=== PATIENT | male | born 1955 | race African-American/Black ===

== ENCOUNTER 2018-10-01 08:48 | Inpatient (IN) ==
[~2018-10-01 08:48] MED LIST: CEFUROXIME INJ 1,500 MG in SYRINGE 1 EACH IV ONE; DEXTROSE 50% 25 GM/50 ML SYRINGE IV PRN; GLUCAGON 1 MG VIAL IM PRN
[2018-10-01] MEDS ORDERED: ceFAZolin 1,000 MG in SYRINGE 1 EACH IV ONE (09:02)
[2018-10-01 09:23] LABS: Basophils % 0.3 % (0.0-0.8); Eosinophils % 0.6 % (0.00-10.9); Hematocrit 44.4 VOL% (42.0-52.0); Hemoglobin 14.3 GM/DL (14.0-18.0); Immature Granulocytes % 0.4 %; Immature Granulocytes Absolute 0.03 #; Lymphocytes # 1.4 10*3/uL (1.4-4.0); Lymphocytes % 19.9 % (21.2-54.2); Mean Corpuscular HGB Conc 32.2 GM/DL (32-36); Mean Corpuscular Hemoglobin 27 PG (27-34); Mean Corpuscular Volume 85.2 FL (87-102); Mean Platelet Volume 10.2 FL (9.6-12.0); Monocytes # 0.9 10*3/uL (0.11-0.8); Monocytes % 13.5 % (1.7-12.7); Neutrophils # 4.5 10*3/uL (1.4-7.4); Neutrophils % 65.3 % (38.7-73.9); Platelet Count 263 T/CUMM (130-400); Red Blood Count 5.21 MC/CUMM (3.8-5.5); Red Cell Distribution Width 12.6 % (9.3-17.3); White Blood Count 6.8 T/CUMM (4-12)
[2018-10-01] MEDS ORDERED: DEXTROSE 50% 25 GM/50 ML SYRINGE IV PRN (09:34)
[2018-10-01] MEDS ORDERED: GLUCAGON 1 MG VIAL IM PRN ×2 (09:34→20:07)
[2018-10-01 09:59] LABS: Bilirubin,Total 0.6 MG/DL (0.2-1.0); Calcium 9.4 MG/DL (8.5-10.1); Osmolality,Calculated 277.8 MOS/KG (273-304); Potassium 3.5 MMOL/L (3.5-5.1); Total Protein 7.2 G/DL (6.4-8.3)
[2018-10-01] MEDS ORDERED: HEPARIN DRIP 25,000 UNITS/500 ML PREMIX IV SCH (10:00)
[2018-10-01] MEDS: CLORAZEPATE 3.75 MG TABLET PO SCH ×3 (10:19→20:56)
[2018-10-01] MEDS: CHLORHEXIDINE 0.12% ORAL RINSE 60 ML BOTTLE SWISH/SPIT SCH ×3 (10:19→20:56)
[2018-10-01] MEDS: ASPIRIN CHEW 81 MG TABLET PO SCH (10:19)
[2018-10-01] MEDS: PANTOPRAZOLE 40 MG TABLET PO SCH (10:19)
[2018-10-01] MEDS: ATORVASTATIN 80 MG TABLET PO SCH (10:19)
[2018-10-01] MEDS: METOPROLOL TARTRATE 25 MG TABLET PO SCH ×3 (10:19→20:56)
[2018-10-01 11:49] LABS: Pt O2 Delivery Device Room Air
[2018-10-01 11:51] LABS: ABG Base Excess 1.6 MMOL/L (-2.5-2.5); ABG HCO3 25.7 MMOL/L (20-26); ABG Oxygen Saturation 95.1 % (95-100); ABG PCO2 37.2 MM HG (35-48); ABG PH 7.443 (7.35-7.45); ABG PO2 73.2 MM HG (80-95); ABG TCO2 21.8 MMOL/L (23-27)
[2018-10-01] MEDS: SODIUM CHLORIDE 0.9% 1,000 ML IV SCH (13:54)
[2018-10-01] MEDS: CHLORHEXIDINE 4% SOLN 118 ML BOTTLE TOP SCH ×2 (14:04→20:30)
[2018-10-01] MEDS ORDERED: NITROGLYCERIN SL 0.4 MG TABLET SL ONE (15:19)
[2018-10-01] MEDS ORDERED: CLORAZEPATE 3.75 MG TABLET PO ONE (15:37)
[2018-10-01] MEDS: NITROGLYCERIN 2% OINT 1 INCH/GM PACK TOP SCH ×2 (16:06→17:10)
[2018-10-01] MEDS ORDERED: DEXTROSE 50% 25 GM/50 ML VIAL IV PRN (20:07)
[2018-10-01] MEDS ORDERED: ONDANSETRON 4 MG/2 ML VIAL IV PRN (20:26)
[2018-10-01] MEDS ORDERED: MORPHINE 4 MG/1 ML VIAL IV PRN (20:29)
[2018-10-01] MEDS: INSULIN REGULAR 100 UNIT/ML SUBCUT SCH (20:54)
[2018-10-02] MEDS: NITROGLYCERIN 2% OINT 1 INCH/GM PACK TOP SCH ×3 (00:27→11:44)
[2018-10-02] MEDS ORDERED: PAPAVERINE 60 MG/2 ML VIAL ONE (04:43)
[2018-10-02] MEDS ORDERED: VANCOMYCIN 1,000 MG VIAL ONE (04:43)
[2018-10-02] MEDS: CHLORHEXIDINE 4% SOLN 118 ML BOTTLE TOP SCH ×2 (05:00→08:26)
[2018-10-02] MEDS ORDERED: ceFAZolin 1,000 MG in SYRINGE 1 EACH IV ONE (05:30)
[2018-10-02] MEDS: METOPROLOL TARTRATE 25 MG TABLET PO SCH ×2 (05:38→08:26)
[2018-10-02] MEDS ORDERED: CALCIUM CHLORIDE 1,000 MG/10 ML VIAL IV ONE (05:40)
[2018-10-02] MEDS ORDERED: MIDAZOLAM 10 MG/2 ML VIAL ONE (05:40)
[2018-10-02] MEDS ORDERED: SUFentanil 250 MCG/5 ML AMP ONE (05:40)
[2018-10-02] MEDS ORDERED: MINERAL OIL/PETROLATUM OPH OINT 3.5 GM TUBE ONE (05:41)
[2018-10-02] MEDS ORDERED: NITROGLYCERIN DRIP 50 MG/250 ML BOTTLE IV ONE (05:41)
[2018-10-02] MEDS ORDERED: HEPARIN/NACL 0.9% 2 UNITS/ML 500 ML IV ONE (05:41)
[2018-10-02] MEDS ORDERED: VECURONIUM 10 MG VIAL IV ONE (05:41)
[2018-10-02] MEDS ORDERED: AMINOCAPROIC ACID 5,000 MG/20 ML VIAL ONE (05:41)
[2018-10-02] MEDS ORDERED: LORazepam 1 MG TABLET PO ONE (06:00)
[2018-10-02] MEDS ORDERED: PHENYLEPHRINE DRIP 40 MG/250 ML PREMIX IV ONE (07:51)
[2018-10-02] MEDS ORDERED: NITROPRUSSIDE 50 MG/2 ML VIAL ONE (07:51)
[2018-10-02] MEDS ORDERED: POTASSIUM CHLORIDE RIDER 100 ML IV ONE (07:52)
[2018-10-02] MEDS ORDERED: CALCIUM CHLORIDE 1,000 MG/10 ML SYRINGE IV ONE (07:52)
[2018-10-02] MEDS ORDERED: SODIUM BICARBONATE 50 MEQ/50 ML VIAL IV ONE ×2 (07:52→11:34)
[2018-10-02] MEDS ORDERED: ATROPINE 1 MG/10 ML SYRINGE ONE (07:57)
[2018-10-02 07:58] LABS: ABG Base Excess -1.2 MMOL/L (-2.5-2.5); ABG HCO3 22.8 MMOL/L (20-26); ABG Oxygen Saturation 99.3 % (95-100); ABG PCO2 36.1 MM HG (35-48); ABG PH 7.418 (7.35-7.45); ABG PO2 292.3 MM HG (80-95); ABG TCO2 23.9 MMOL/L (23-27); Glucose Heart Surgery 200 MG/DL (74-106); Hemoglobin Heart Surgery 13.8 G/DL (14.0-18.0); Ionized Calcium Arterial 1.21 MMOL/L (1.21-1.46); PCO2 Patient Temp Arterial 36.1 MMHG; PH Patient Temp Arterial 7.418; PO2 Patient Temp Arterial 292.3 MM HG; Patient Temperature 37 CELCIUS; Potassium Heart/CVR 3.6 MMOL/L (3.5-5.1); Sodium Heart/CVR 134 MMOL/L (135-145)
[2018-10-02] MEDS ORDERED: HEPARIN 1,000 UNIT/1 ML VIAL ONE (08:12)
[2018-10-02] MEDS: INSULIN REGULAR 100 UNIT/ML SUBCUT SCH ×2 (08:25→10:42)
[2018-10-02] MEDS: ASPIRIN CHEW 81 MG TABLET PO SCH (08:25)
[2018-10-02] MEDS: SODIUM CHLORIDE 0.9% 1,000 ML IV SCH ×2 (08:25→08:30)
[2018-10-02] MEDS: ATORVASTATIN 80 MG TABLET PO SCH (08:26)
[2018-10-02] MEDS: CLORAZEPATE 3.75 MG TABLET PO SCH (08:26)
[2018-10-02] MEDS: PANTOPRAZOLE 40 MG TABLET PO SCH (08:26)
[2018-10-02] MEDS: CHLORHEXIDINE 0.12% ORAL RINSE 60 ML BOTTLE SWISH/SPIT SCH ×2 (08:26→21:01)
[2018-10-02 08:35] LABS: Apearance,Urine Slightly Hazy (Clear); Bilirubin,Urine Negative (Negative); Blood, Urine Moderate mg/dL (Negative); Glucose,Urine (UA) 50 mg/dL (Negative); Ketones,Urine 5 mg/dL (Negative); Mucus,Urine Occasional /LPF (Occasional); Nitrite,Urine Negative (Negative); Protein,Urine Negative; RBC,Urine 1 /HPF (0-4); Urine Color Yellow (Yellow); Urine Specific Gravity 1.018 (1.001-1.035); WBC,Urine <1 /HPF (0-6)
[2018-10-02] MEDS ORDERED: ALBUMIN 5% 12.5 GM/250 ML VIAL IV ONE (08:46)
[2018-10-02 09:34] LABS: Hemoglobin Heart Surgery 9.9 G/DL (14.0-18.0); PCO2 Patient Temp Venous 34.8 MM HG; PH Patient Temp Venous 7.449; PO2 Patient Temp Venous 43.9 MM HG; Potassium Heart/CVR 4.4 MMOL/L (3.5-5.1); VBG Base Excess -0.3 MEQ/L (0-4); VBG Oxygen Saturation 84.7 %; VBG PH 7.419; VBG PO2 50.5 MMHG (17-40)
[2018-10-02 10:11] LABS: Hematocrit Heart Surgery 29.3 PERCENT (42-52); Hemoglobin Heart Surgery 9.5 G/DL (14.0-18.0); PCO2 Patient Temp Venous 31.1 MM HG; PH Patient Temp Venous 7.48; PO2 Patient Temp Venous 40.9 MM HG; Potassium Heart/CVR 4.2 MMOL/L (3.5-5.1); VBG Base Excess 0.2 MEQ/L (0-4); VBG HCO3 24.5 MEQ/L (24-28); VBG Oxygen Saturation 86.6 %; VBG PH 7.436; VBG PO2 50.2 MMHG (17-40)
[2018-10-02 10:37] LABS: Hematocrit Heart Surgery 31.4 PERCENT (42-52); Hemoglobin Heart Surgery 10.2 G/DL (14.0-18.0); PCO2 Patient Temp Venous 33.3 MM HG; PH Patient Temp Venous 7.453; PO2 Patient Temp Venous 41.8 MM HG; Potassium Heart/CVR 4.5 MMOL/L (3.5-5.1); VBG Base Excess -0.1 MEQ/L (0-4); VBG Oxygen Saturation 79.4 %; VBG PCO2 33.3 MMHG (41-51); VBG PH 7.453; VBG PO2 41.8 MMHG (17-40)
[2018-10-02] MEDS ORDERED: MANNITOL 100 GM/500 ML BAG IV ONE (11:33)
[2018-10-02] MEDS ORDERED: THROMBIN TOPICAL (RECOMBINANT) 5,000 UNIT VIAL TOP ONE (11:33)
[2018-10-02 11:34] LABS: ABG Base Excess -3.8 MMOL/L (-2.5-2.5); ABG HCO3 21.3 MMOL/L (20-26); ABG Oxygen Saturation 99.8 % (95-100); ABG PCO2 35.4 MM HG (35-48); ABG PH 7.376 (7.35-7.45); ABG TCO2 18.9 MMOL/L (23-27); Glucose Heart Surgery 325 MG/DL (74-106); Hematocrit Heart Surgery 30.9 PERCENT (42-52); Ionized Calcium Arterial 1.47 MMOL/L (1.21-1.46); PCO2 Patient Temp Arterial 35.4 MMHG; PH Patient Temp Arterial 7.376; Patient Temperature 37 CELCIUS; Potassium Heart/CVR 4.2 MMOL/L (3.5-5.1); Sodium Heart/CVR 128 MMOL/L (135-145)
[2018-10-02] MEDS ORDERED: DEXTROSE 5% KCL 20 MEQ 20 MEQ/1,000 ML BAG IV ONE (11:34)
[2018-10-02] MEDS ORDERED: FUROSEMIDE 20 MG/2 ML VIAL ONE (11:34)
[2018-10-02] MEDS ORDERED: methylPREDNISolone SOD SUC 1,000 MG/8 ML VIAL ONE (11:34)
[2018-10-02] MEDS ORDERED: MAGNESIUM SULFATE 10 GM/20 ML VIAL IV ONE (11:34)
[2018-10-02] MEDS ORDERED: PROTAMINE SULFATE 250 MG/25 ML VIAL IV ONE (11:34)
[2018-10-02] MEDS ORDERED: ALBUMIN 25% 25 GM/100 ML VIAL IV ONE (11:34)
[2018-10-02] MEDS ORDERED: HEPARIN 10,000 UNIT/10 ML VIAL ONE (11:34)
[2018-10-02] MEDS ORDERED: PROTAMINE SULFATE 50 MG/5 ML VIAL IV ONE ×3 (11:35→12:47)
[2018-10-02] MEDS ORDERED: DOBUTamine 500 MG/250 ML PREMIX IV ONE ×2 (12:06→12:35)
[2018-10-02] MEDS ORDERED: LACTATED RINGERS 2,000 ML IV ONE (12:35)
[2018-10-02] MEDS ORDERED: SODIUM CHLORIDE 0.9% 2,000 ML IV ONE (12:35)
[2018-10-02] MEDS ORDERED: SEVOFLURANE 1 UNIT/15 MINUTE INH ONE (12:35)
[2018-10-02] MEDS ORDERED: PHENYLEPHRINE 10 MG/1 ML VIAL IV ONE (12:35)
[2018-10-02] MEDS ORDERED: ePHEDrine 50 MG/ML AMP ONE (12:35)
[2018-10-02] MEDS ORDERED: ETOMIDATE 40 MG/20 ML VIAL IV ONE (12:35)
[2018-10-02] MEDS ORDERED: SODIUM CHLORIDE 0.9% 250 ML IV ONE (12:35)
[2018-10-02] MEDS ORDERED: MORPHINE 10 MG/1 ML VIAL IV PRN (12:42)
[2018-10-02] MEDS ORDERED: ACETAMINOPHEN 650 MG SUPP RECTAL PRN (12:42)
[2018-10-02] MEDS ORDERED: NITROPRUSSIDE 100 MG in DEXTROSE 5% 250 ML IV PRN (12:42)
[2018-10-02] MEDS ORDERED: ONDANSETRON 4 MG/2 ML VIAL IV PRN (12:42)
[2018-10-02] MEDS ORDERED: INSULIN REGULAR 100 UNIT/ML IV ONE (12:42)
[2018-10-02] MEDS ORDERED: POTASSIUM CHLORIDE RIDER 10 MEQ in PREMIX 1 EACH IV PRN (12:42)
[2018-10-02] MEDS ORDERED: CALCIUM CHLORIDE 1,000 MG/10 ML SYRINGE IV PRN (12:42)
[2018-10-02] MEDS ORDERED: MAGNESIUM SULF RIDER 2 GM in PREMIX 1 EACH IV PRN (12:42)
[2018-10-02] MEDS ORDERED: INSULIN REGULAR 100 UNIT/ML IV PRN (12:42)
[2018-10-02] MEDS ORDERED: MAGNESIUM SULF RIDER 4 GM in PREMIX 1 EACH IV PRN (12:42)
[2018-10-02] MEDS ORDERED: MIDAZOLAM 2 MG/2 ML VIAL IV PRN (12:42)
[2018-10-02] MEDS ORDERED: VECURONIUM 10 MG VIAL IV PRN ×2 (12:42)
[2018-10-02] MEDS ORDERED: DEXTROSE 50% 25 GM/50 ML SYRINGE IV PRN ×2 (12:42)
[2018-10-02] MEDS ORDERED: PHENYLEPHRINE DRIP 40 MG/250 ML PREMIX IV PRN (12:42)
[2018-10-02] MEDS ORDERED: DOBUTamine 500 MG/250 ML PREMIX IV PRN (12:45)
[2018-10-02] MEDS ORDERED: SODIUM CHLORIDE 0.45% 1,000 ML IV SCH ×2 (13:00)
[2018-10-02] MEDS ORDERED: INSULIN REGULAR DRIP 100 ML IV SCH (13:00)
[2018-10-02] MEDS ORDERED: KETOROLAC 30 MG/1 ML VIAL IV SCH (13:00)
[2018-10-02] MEDS: LACTATED RINGERS 250 ML IV PRN ×2 (13:01→14:29)
[2018-10-02 13:19] LABS: ABG Base Excess -3.1 MMOL/L (-2.5-2.5); ABG HCO3 21.7 MMOL/L (20-26); ABG Oxygen Saturation 93.6 % (95-100); ABG PCO2 36.6 MM HG (35-48); ABG PH 7.376 (7.35-7.45); ABG PO2 73.3 MM HG (80-95); Glucose Heart Surgery 338 MG/DL (74-106); Hematocrit Heart Surgery 50.1 PERCENT (42-52); Hemoglobin Heart Surgery 16.4 G/DL (14.0-18.0)
[2018-10-02 13:20] LABS: Basophils % 0.2 % (0.0-0.8); Eosinophils % 0.1 % (0.00-10.9); Hematocrit 34.6 VOL% (42.0-52.0); Immature Granulocytes Absolute 0.13 #; Lymphocytes # 0.7 10*3/uL (1.4-4.0); Lymphocytes % 5.1 % (21.2-54.2); Mean Corpuscular HGB Conc 32.7 GM/DL (32-36); Mean Corpuscular Hemoglobin 28 PG (27-34); Mean Corpuscular Volume 85.6 FL (87-102); Mean Platelet Volume 10.7 FL (9.6-12.0); Monocytes # 0.9 10*3/uL (0.11-0.8); Monocytes % 6.7 % (1.7-12.7); Neutrophils # 11.1 10*3/uL (1.4-7.4); Neutrophils % 86.9 % (38.7-73.9); Platelet Count 204 T/CUMM (130-400); Red Cell Distribution Width 12.7 % (9.3-17.3)
[2018-10-02 13:24] LABS: Hemoglobin 11.3 GM/DL (14.0-18.0); Red Blood Count 4.04 MC/CUMM (3.8-5.5); White Blood Count 12.8 T/CUMM (4-12)
[2018-10-02 13:34] LABS: CKMB % 6.9 %
[2018-10-02 13:37] LABS: Troponin I 35.2 NG/ML (0.00-0.045)
[2018-10-02 13:40] LABS: Albumin 2.6 G/DL (3.4-5.0); Bilirubin,Total 1.2 MG/DL (0.2-1.0); Calcium 9.2 MG/DL (8.5-10.1); Osmolality,Calculated 282.1 MOS/KG (273-304); Potassium 4.1 MMOL/L (3.5-5.1); Total Protein 5.9 G/DL (6.4-8.3)
[2018-10-02] MEDS: POTASSIUM CHLORIDE RIDER 20 MEQ in PREMIX 1 EACH IV PRN ×3 (13:51→19:37)
[2018-10-02] MEDS: ALBUMIN 5% 12.5 GM in PREMIX 1 EACH IV PRN ×4 (13:53→16:13)
[2018-10-02 14:19] LABS: ABG Base Excess -2.6 MMOL/L (-2.5-2.5); ABG HCO3 22.2 MMOL/L (20-26); ABG Oxygen Saturation 97.5 % (95-100); ABG PCO2 32.9 MM HG (35-48); ABG PH 7.416 (7.35-7.45); ABG PO2 95.3 MM HG (80-95); ABG TCO2 18.9 MMOL/L (23-27); Glucose Heart Surgery 315 MG/DL (74-106); Hematocrit Heart Surgery 35.3 PERCENT (42-52); Hemoglobin Heart Surgery 11.4 G/DL (14.0-18.0); Potassium Heart/CVR 4.2 MMOL/L (3.5-5.1)
[2018-10-02] MEDS: ceFAZolin 1,000 MG in SYRINGE 1 EACH IV SCH ×2 (14:28→20:59)
[2018-10-02 14:36] LABS: PT Patient Result 11.3 SECS; Partial Thromboplastin Time 28.9 SECS (0-40)
[2018-10-02] MEDS ORDERED: SODIUM CHLORIDE 0.9% 500 ML IV ONE (15:33)
[2018-10-02 16:13] LABS: ABG Base Excess -2.6 MMOL/L (-2.5-2.5); ABG HCO3 22.2 MMOL/L (20-26); ABG Oxygen Saturation 99.4 % (95-100); ABG PCO2 35.1 MM HG (35-48); ABG PH 7.398 (7.35-7.45); ABG TCO2 19.8 MMOL/L (23-27); Glucose Heart Surgery 252 MG/DL (74-106); Hematocrit Heart Surgery 29.7 PERCENT (42-52); Hemoglobin Heart Surgery 9.6 G/DL (14.0-18.0); Potassium Heart/CVR 3.7 MMOL/L (3.5-5.1)
[2018-10-02] MEDS ORDERED: DOBUTamine 500 MG/250 ML PREMIX IV SCH (17:06)
[2018-10-02] MEDS ORDERED: FUROSEMIDE 40 MG/4 ML VIAL IV PRN (18:50)
[2018-10-02 19:24] LABS: ABG Base Excess -2.9 MMOL/L (-2.5-2.5); ABG Oxygen Saturation 98.7 % (95-100); ABG PCO2 33.8 MM HG (35-48); ABG PH 7.404 (7.35-7.45); Glucose Heart Surgery 206 MG/DL (74-106); Hematocrit Heart Surgery 33.8 PERCENT (42-52); Hemoglobin Heart Surgery 10.9 G/DL (14.0-18.0); Potassium Heart/CVR 4.2 MMOL/L (3.5-5.1)
[2018-10-02] MEDS: MORPHINE 4 MG/1 ML VIAL IV PRN (19:48)
[2018-10-02 20:45] LABS: CKMB % 5.2 %
[2018-10-02] MEDS ORDERED: PROPOFOL 1,000 MG/100 ML BOTTLE IV SCH (22:00)
[2018-10-02] MEDS: MIDAZOLAM 10 MG/2 ML VIAL IV PRN (23:26)
[2018-10-03 00:28] LABS: ABG Base Excess -1.8 MMOL/L (-2.5-2.5); ABG Oxygen Saturation 97.8 % (95-100); ABG PH 7.428 (7.35-7.45); Glucose Heart Surgery 121 MG/DL (74-106); Hemoglobin Heart Surgery 11.5 G/DL (14.0-18.0)
[2018-10-03] MEDS: MIDAZOLAM 10 MG/2 ML VIAL IV PRN ×2 (01:21→03:00)
[2018-10-03] MEDS: ceFAZolin 1,000 MG in SYRINGE 1 EACH IV SCH ×2 (03:04→09:32)
[2018-10-03 04:29] LABS: ABG Base Excess -4.2 MMOL/L (-2.5-2.5); ABG Oxygen Saturation 97.1 % (95-100); ABG PCO2 33.5 MM HG (35-48); ABG PH 7.393 (7.35-7.45); ABG PO2 101.4 MM HG (80-95); Glucose Heart Surgery 171 MG/DL (74-106); Hemoglobin Heart Surgery 11.3 G/DL (14.0-18.0); Potassium Heart/CVR 4.5 MMOL/L (3.5-5.1)
[2018-10-03 04:33] LABS: Basophils % 0.2 % (0.0-0.8); Hematocrit 32.8 VOL% (42.0-52.0); Hemoglobin 10.4 GM/DL (14.0-18.0); Immature Granulocytes % 0.6 %; Immature Granulocytes Absolute 0.07 #; Lymphocytes # 0.4 10*3/uL (1.4-4.0); Lymphocytes % 3.5 % (21.2-54.2); Mean Corpuscular HGB Conc 31.7 GM/DL (32-36); Mean Corpuscular Hemoglobin 28 PG (27-34); Mean Corpuscular Volume 87.2 FL (87-102); Mean Platelet Volume 10.8 FL (9.6-12.0); Monocytes # 0.8 10*3/uL (0.11-0.8); Monocytes % 6.2 % (1.7-12.7); Neutrophils % 89.5 % (38.7-73.9); Platelet Count 182 T/CUMM (130-400); Red Blood Count 3.76 MC/CUMM (3.8-5.5); Red Cell Distribution Width 13.1 % (9.3-17.3); White Blood Count 12.3 T/CUMM (4-12)
[2018-10-03 04:49] LABS: Albumin 3.3 G/DL (3.4-5.0); Bilirubin,Direct 0.37 MG/DL (0.0-0.20); Bilirubin,Total 0.8 MG/DL (0.2-1.0); Calcium 9.5 MG/DL (8.5-10.1); Osmolality,Calculated 281.7 MOS/KG (273-304); Potassium 4.5 MMOL/L (3.5-5.1); Total Protein 6.2 G/DL (6.4-8.3)
[2018-10-03 05:07] LABS: CKMB % 4.4 %
[2018-10-03 05:08] LABS: Troponin I 22.2 NG/ML (0.00-0.045)
[2018-10-03 05:59] LABS: Lymphocytes 1 % (20-55); Platelet Estimate Normal; Segmented Neutrophils 95 % (50-85); Total Cells Counted 100
[2018-10-03 06:11] LABS: ABG HCO3 19.9 MMOL/L (20-26); ABG Oxygen Saturation 98.1 % (95-100); ABG PCO2 28.8 MM HG (35-48); ABG PH 7.457 (7.35-7.45); ABG PO2 116.7 MM HG (80-95); ABG TCO2 20.8 MMOL/L (23-27); Glucose Heart Surgery 168 MG/DL (74-106); Hemoglobin Heart Surgery 11.6 G/DL (14.0-18.0); Potassium Heart/CVR 4.4 MMOL/L (3.5-5.1)
[2018-10-03 07:11] LABS: ABG Base Excess -2.8 MMOL/L (-2.5-2.5); ABG HCO3 22.1 MMOL/L (20-26); ABG Oxygen Saturation 97.1 % (95-100); ABG PCO2 34.6 MM HG (35-48); ABG PH 7.399 (7.35-7.45); ABG PO2 90.1 MM HG (80-95); ABG TCO2 19.2 MMOL/L (23-27); Glucose Heart Surgery 174 MG/DL (74-106); Hematocrit Heart Surgery 34.2 PERCENT (42-52); Hemoglobin Heart Surgery 11.1 G/DL (14.0-18.0); Potassium Heart/CVR 4.2 MMOL/L (3.5-5.1)
[2018-10-03] MEDS: CHLORHEXIDINE 0.12% ORAL RINSE 60 ML BOTTLE SWISH/SPIT SCH ×2 (09:32→21:35)
[2018-10-03] MEDS: MORPHINE 4 MG/1 ML VIAL IV PRN (10:22)
[2018-10-03] MEDS ORDERED: ALUMINUM/MAGNES/SIMETH MAX STR 30 ML UDCUP PO PRN (11:31)
[2018-10-03] MEDS ORDERED: MAGNESIUM SULF RIDER 4 GM in PREMIX 1 EACH IV PRN (11:31)
[2018-10-03] MEDS ORDERED: MAGNESIUM SULF RIDER 2 GM in PREMIX 1 EACH IV PRN (11:31)
[2018-10-03] MEDS ORDERED: DEXTROSE 50% 25 GM/50 ML SYRINGE IV PRN (11:31)
[2018-10-03] MEDS ORDERED: MORPHINE 4 MG/1 ML VIAL IV PRN (11:31)
[2018-10-03] MEDS ORDERED: GLUCAGON 1 MG VIAL IM PRN ×2 (11:31)
[2018-10-03] MEDS ORDERED: DEXTROSE 50% 25 GM/50 ML VIAL IV PRN (11:31)
[2018-10-03] MEDS ORDERED: SODIUM CHLOR 0.45% KCL 20 MEQ 20 MEQ/1,000 ML BAG IV SCH (11:31)
[2018-10-03] MEDS: PANTOPRAZOLE 40 MG TABLET PO SCH (11:52)
[2018-10-03] MEDS: INSULIN LISPRO 100 UNIT/ML SUBCUT SCH ×3 (11:52→21:25)
[2018-10-03] MEDS: ASPIRIN CHEW 81 MG TABLET PO SCH (11:55)
[2018-10-03] MEDS ORDERED: ALBUMIN 5% 12.5 GM/250 ML VIAL IV ONE ×2 (14:39)
[2018-10-03] MEDS: FUROSEMIDE 40 MG/4 ML VIAL IV SCH ×2 (14:53→21:27)
[2018-10-03] MEDS ORDERED: ALBUMIN 5% 12.5 GM in PREMIX 1 EACH IV ONE ×2 (15:00→16:00)
[2018-10-03] MEDS: ATORVASTATIN 80 MG TABLET PO SCH (21:27)
[2018-10-03] MEDS: ZALEPLON 5 MG CAPSULE PO PRN (21:27)
[2018-10-03] MEDS: oxyCODONE/ACETAMINOPHEN 5-325 MG TABLET PO PRN (21:27)
[2018-10-03] MEDS: METOPROLOL TARTRATE 25 MG TABLET PO SCH (21:29)
[2018-10-04] MEDS: INSULIN LISPRO 100 UNIT/ML SUBCUT SCH ×7 (00:07→23:31)
[2018-10-04] MEDS ORDERED: DOBUTamine 500 MG/250 ML PREMIX IV PRN (03:32)
[2018-10-04 04:02] LABS: Albumin 3.2 G/DL (3.4-5.0); Bilirubin,Direct 0.31 MG/DL (0.0-0.20); Bilirubin,Indirect 0.4 MG/DL (0.0-1.0); Bilirubin,Total 0.7 MG/DL (0.2-1.0); CKMB % 2.5 %; Calcium 9.5 MG/DL (8.5-10.1); Osmolality,Calculated 284.1 MOS/KG (273-304); Potassium 4.7 MMOL/L (3.5-5.1); Total Protein 6.6 G/DL (6.4-8.3)
[2018-10-04 04:03] LABS: Troponin I 10.8 NG/ML (0.00-0.045)
[2018-10-04 04:11] LABS: Basophils % 0.1 % (0.0-0.8); Hematocrit 32.7 VOL% (42.0-52.0); Hemoglobin 10.6 GM/DL (14.0-18.0); Immature Granulocytes % 0.6 %; Immature Granulocytes Absolute 0.08 #; Lymphocytes # 0.8 10*3/uL (1.4-4.0); Lymphocytes % 5.9 % (21.2-54.2); Mean Corpuscular HGB Conc 32.4 GM/DL (32-36); Mean Corpuscular Hemoglobin 28 PG (27-34); Mean Platelet Volume 12.1 FL (9.6-12.0); Monocytes # 1.5 10*3/uL (0.11-0.8); Monocytes % 10.9 % (1.7-12.7); Neutrophils # 11.2 10*3/uL (1.4-7.4); Neutrophils % 82.5 % (38.7-73.9); Platelet Count 186 T/CUMM (130-400); Red Blood Count 3.76 MC/CUMM (3.8-5.5); Red Cell Distribution Width 13.5 % (9.3-17.3); White Blood Count 13.5 T/CUMM (4-12)
[2018-10-04] MEDS ORDERED: FUROSEMIDE 40 MG/4 ML VIAL IV ONE ×2 (06:00→08:56)
[2018-10-04] MEDS: FUROSEMIDE 40 MG/4 ML VIAL IV SCH (06:10)
[2018-10-04] MEDS: PANTOPRAZOLE 40 MG TABLET PO SCH (08:36)
[2018-10-04] MEDS: DOCUSATE SODIUM 100 MG CAPSULE PO SCH (08:36)
[2018-10-04] MEDS: ASPIRIN CHEW 81 MG TABLET PO SCH (08:36)
[2018-10-04] MEDS: CHLORHEXIDINE 0.12% ORAL RINSE 60 ML BOTTLE SWISH/SPIT SCH ×2 (09:03→21:04)
[2018-10-04] MEDS: DOBUTamine 500 MG/250 ML PREMIX IV SCH (09:03)
[2018-10-04] MEDS: FERROUS SULFATE 325 MG TABLET PO SCH (09:03)
[2018-10-04] MEDS: METOPROLOL TARTRATE 25 MG TABLET PO SCH ×2 (09:03→21:04)
[2018-10-04] MEDS ORDERED: PHENOL 1.4% THROAT SPRAY 177 ML BOTTLE PO PRN (15:18)
[2018-10-04] MEDS: ZALEPLON 5 MG CAPSULE PO PRN (20:28)
[2018-10-04] MEDS: ATORVASTATIN 80 MG TABLET PO SCH (21:04)
[2018-10-05 04:40] LABS: Alanine Aminotransferase 80 U/L (16-61); Albumin 2.9 G/DL (3.4-5.0); Alkaline Phosphatase 148 U/L (45-117); Aspartate Amino Transferase 50 U/L (0-37); Bilirubin,Indirect 0.4 MG/DL (0.0-1.0); Blood Urea Nitrogen 34 MG/DL (7-18); Calcium 9.5 MG/DL (8.5-10.1); Glucose 123 MG/DL (74-106); Potassium 3.8 MMOL/L (3.5-5.1); Sodium 136 MMOL/L (136-145); Total Protein 6.5 G/DL (6.4-8.3)
[2018-10-05 04:41] LABS: Basophils % 0.1 % (0.0-0.8); Eosinophils % 0.1 % (0.00-10.9); Hematocrit 32.1 VOL% (42.0-52.0); Hemoglobin 10.3 GM/DL (14.0-18.0); Immature Granulocytes % 0.6 %; Immature Granulocytes Absolute 0.07 #; Lymphocytes # 1.2 10*3/uL (1.4-4.0); Lymphocytes % 10.5 % (21.2-54.2); Mean Corpuscular HGB Conc 32.1 GM/DL (32-36); Mean Corpuscular Hemoglobin 28 PG (27-34); Mean Corpuscular Volume 86.8 FL (87-102); Mean Platelet Volume 11.3 FL (9.6-12.0); Monocytes # 1.2 10*3/uL (0.11-0.8); Monocytes % 11.2 % (1.7-12.7); Neutrophils # 8.6 10*3/uL (1.4-7.4); Neutrophils % 77.5 % (38.7-73.9); Platelet Count 207 T/CUMM (130-400); Red Cell Distribution Width 13.2 % (9.3-17.3)
[2018-10-05] MEDS: INSULIN LISPRO 100 UNIT/ML SUBCUT SCH ×5 (05:08→20:38)
[2018-10-05] MEDS: POTASSIUM CHLORIDE 20 MEQ TABLET PO PRN ×2 (05:35→06:29)
[2018-10-05] MEDS: DOCUSATE SODIUM 100 MG CAPSULE PO SCH (09:30)
[2018-10-05] MEDS: PANTOPRAZOLE 40 MG TABLET PO SCH (09:30)
[2018-10-05] MEDS: ASPIRIN CHEW 81 MG TABLET PO SCH (09:30)
[2018-10-05] MEDS: METOPROLOL TARTRATE 25 MG TABLET PO SCH ×2 (09:30→20:37)
[2018-10-05] MEDS: MAGNESIUM HYDROXIDE SUSP 30 ML UDCUP PO PRN (09:30)
[2018-10-05] MEDS: FERROUS SULFATE 325 MG TABLET PO SCH (09:30)
[2018-10-05] MEDS: CHLORHEXIDINE 0.12% ORAL RINSE 60 ML BOTTLE SWISH/SPIT SCH ×2 (09:35→20:37)
[2018-10-05] MEDS: DOBUTamine 500 MG/250 ML PREMIX IV SCH (09:36)
[2018-10-05] MEDS ORDERED: FUROSEMIDE 40 MG/4 ML VIAL IV ONE (11:38)
[2018-10-05] MEDS: ALBUTEROL/IPRATROPIUM 3 ML NEB RESP TX SCH ×2 (12:30→18:53)
[2018-10-05] MEDS: ZALEPLON 5 MG CAPSULE PO PRN (20:37)
[2018-10-05] MEDS: ATORVASTATIN 80 MG TABLET PO SCH (20:37)
[2018-10-05] MEDS: CLORAZEPATE 3.75 MG TABLET PO PRN (20:38)
[2018-10-05] MEDS: ONDANSETRON 4 MG/2 ML VIAL IV PRN (20:52)
[2018-10-06] MEDS: ALBUTEROL/IPRATROPIUM 3 ML NEB RESP TX SCH ×4 (00:15→18:50)
[2018-10-06] MEDS: INSULIN LISPRO 100 UNIT/ML SUBCUT SCH ×6 (00:36→21:09)
[2018-10-06] MEDS: CLORAZEPATE 3.75 MG TABLET PO PRN ×2 (08:02→21:57)
[2018-10-06] MEDS: DOCUSATE SODIUM 100 MG CAPSULE PO SCH (08:02)
[2018-10-06] MEDS: oxyCODONE/ACETAMINOPHEN 5-325 MG TABLET PO PRN ×3 (08:03→20:23)
[2018-10-06] MEDS: METOPROLOL TARTRATE 25 MG TABLET PO SCH ×2 (08:04→21:10)
[2018-10-06] MEDS: ASPIRIN CHEW 81 MG TABLET PO SCH (08:04)
[2018-10-06] MEDS: POTASSIUM CHLORIDE 20 MEQ TABLET PO PRN (08:04)
[2018-10-06] MEDS: FERROUS SULFATE 325 MG TABLET PO SCH (08:04)
[2018-10-06] MEDS: MAGNESIUM HYDROXIDE SUSP 30 ML UDCUP PO PRN (08:05)
[2018-10-06] MEDS: ONDANSETRON 4 MG/2 ML VIAL IV PRN (08:06)
[2018-10-06] MEDS: PANTOPRAZOLE 40 MG TABLET PO SCH (08:17)
[2018-10-06] MEDS: CHLORHEXIDINE 0.12% ORAL RINSE 60 ML BOTTLE SWISH/SPIT SCH ×2 (08:17→21:11)
[2018-10-06] MEDS: ATORVASTATIN 80 MG TABLET PO SCH (21:10)
[2018-10-06] MEDS: ZALEPLON 5 MG CAPSULE PO PRN (21:57)
[2018-10-07] MEDS: ALBUTEROL/IPRATROPIUM 3 ML NEB RESP TX SCH ×4 (00:10→19:15)
[2018-10-07 04:38] LABS: Basophils % 0.1 % (0.0-0.8); Eosinophils # 0.1 10*3/uL (0.0-0.87); Eosinophils % 1.6 % (0.00-10.9); Hematocrit 36.1 VOL% (42.0-52.0); Hemoglobin 11.7 GM/DL (14.0-18.0); Immature Granulocytes % 0.5 %; Immature Granulocytes Absolute 0.04 #; Lymphocytes # 1.5 10*3/uL (1.4-4.0); Lymphocytes % 18.8 % (21.2-54.2); Mean Corpuscular HGB Conc 32.4 GM/DL (32-36); Mean Corpuscular Hemoglobin 28 PG (27-34); Mean Corpuscular Volume 85.5 FL (87-102); Mean Platelet Volume 10.8 FL (9.6-12.0); Monocytes # 1.1 10*3/uL (0.11-0.8); Monocytes % 12.9 % (1.7-12.7); Neutrophils # 5.4 10*3/uL (1.4-7.4); Neutrophils % 66.1 % (38.7-73.9); Platelet Count 303 T/CUMM (130-400); Red Blood Count 4.22 MC/CUMM (3.8-5.5); White Blood Count 8.2 T/CUMM (4-12)
[2018-10-07 05:39] LABS: Alanine Aminotransferase 68 U/L (16-61); Albumin 2.7 G/DL (3.4-5.0); Alkaline Phosphatase 159 U/L (45-117); Aspartate Amino Transferase 30 U/L (0-37); Bilirubin,Indirect 1.4 MG/DL (0.0-1.0); Blood Urea Nitrogen 31 MG/DL (7-18); Calcium 9.6 MG/DL (8.5-10.1); Glucose 171 MG/DL (74-106); Potassium 4.4 MMOL/L (3.5-5.1); Sodium 136 MMOL/L (136-145); Total Protein 6.4 G/DL (6.4-8.3)
[2018-10-07] MEDS: FERROUS SULFATE 325 MG TABLET PO SCH (09:09)
[2018-10-07] MEDS: METOPROLOL TARTRATE 25 MG TABLET PO SCH ×2 (09:09→20:56)
[2018-10-07] MEDS: PANTOPRAZOLE 40 MG TABLET PO SCH (09:09)
[2018-10-07] MEDS: INSULIN LISPRO 100 UNIT/ML SUBCUT SCH ×4 (09:09→20:55)
[2018-10-07] MEDS: ASPIRIN CHEW 81 MG TABLET PO SCH (09:09)
[2018-10-07] MEDS: DOCUSATE SODIUM 100 MG CAPSULE PO SCH (09:09)
[2018-10-07] MEDS: CHLORHEXIDINE 0.12% ORAL RINSE 60 ML BOTTLE SWISH/SPIT SCH ×2 (09:12→20:59)
[2018-10-07] MEDS: oxyCODONE/ACETAMINOPHEN 5-325 MG TABLET PO PRN ×2 (09:24→17:54)
[2018-10-07] MEDS: MAGNESIUM HYDROXIDE SUSP 30 ML UDCUP PO PRN (09:25)
[2018-10-07] MEDS: ATORVASTATIN 80 MG TABLET PO SCH (20:54)
[2018-10-07] MEDS: ACETAMINOPHEN 325 MG TABLET PO PRN (20:54)
[2018-10-08] MEDS: ALBUTEROL/IPRATROPIUM 3 ML NEB RESP TX SCH ×4 (00:30→19:40)
[2018-10-08] MEDS: ZALEPLON 5 MG CAPSULE PO PRN ×2 (00:50→22:15)
[2018-10-08] MEDS: oxyCODONE/ACETAMINOPHEN 5-325 MG TABLET PO PRN ×2 (03:34→17:44)
[2018-10-08 05:04] LABS: Basophils % 0.1 % (0.0-0.8); Eosinophils # 0.1 10*3/uL (0.0-0.87); Eosinophils % 1.5 % (0.00-10.9); Hematocrit 36.3 VOL% (42.0-52.0); Hemoglobin 11.8 GM/DL (14.0-18.0); Immature Granulocytes % 0.9 %; Immature Granulocytes Absolute 0.08 #; Lymphocytes # 1.5 10*3/uL (1.4-4.0); Lymphocytes % 17.8 % (21.2-54.2); Mean Corpuscular HGB Conc 32.5 GM/DL (32-36); Mean Corpuscular Hemoglobin 28 PG (27-34); Mean Corpuscular Volume 85.6 FL (87-102); Mean Platelet Volume 10.4 FL (9.6-12.0); Monocytes % 11.7 % (1.7-12.7); Neutrophils # 5.7 10*3/uL (1.4-7.4); Platelet Count 340 T/CUMM (130-400); Red Blood Count 4.24 MC/CUMM (3.8-5.5); Red Cell Distribution Width 12.8 % (9.3-17.3); White Blood Count 8.4 T/CUMM (4-12)
[2018-10-08 05:32] LABS: Alanine Aminotransferase 63 U/L (16-61); Albumin 2.7 G/DL (3.4-5.0); Alkaline Phosphatase 156 U/L (45-117); Aspartate Amino Transferase 28 U/L (0-37); Bilirubin,Indirect 0.6 MG/DL (0.0-1.0); Blood Urea Nitrogen 28 MG/DL (7-18); Calcium 9.3 MG/DL (8.5-10.1); Glucose 187 MG/DL (74-106); Osmolality,Calculated 278.2 MOS/KG (273-304); Potassium 4.1 MMOL/L (3.5-5.1); Sodium 134 MMOL/L (136-145); Total Protein 6.7 G/DL (6.4-8.3)
[2018-10-08] MEDS: METOPROLOL TARTRATE 25 MG TABLET PO SCH ×2 (08:07→21:12)
[2018-10-08] MEDS: DOCUSATE SODIUM 100 MG CAPSULE PO SCH (08:07)
[2018-10-08] MEDS: ASPIRIN CHEW 81 MG TABLET PO SCH (08:07)
[2018-10-08] MEDS: FERROUS SULFATE 325 MG TABLET PO SCH (08:07)
[2018-10-08] MEDS: CHLORHEXIDINE 0.12% ORAL RINSE 60 ML BOTTLE SWISH/SPIT SCH ×2 (08:07→21:12)
[2018-10-08] MEDS: PANTOPRAZOLE 40 MG TABLET PO SCH (08:07)
[2018-10-08] MEDS: INSULIN LISPRO 100 UNIT/ML SUBCUT SCH ×4 (08:07→21:17)
[2018-10-08] MEDS: ACETAMINOPHEN 325 MG TABLET PO PRN (12:48)
[2018-10-08] MEDS: ONDANSETRON 4 MG/2 ML VIAL IV PRN (17:45)
[2018-10-08] MEDS: ATORVASTATIN 80 MG TABLET PO SCH (21:12)
[2018-10-09] MEDS: oxyCODONE/ACETAMINOPHEN 5-325 MG TABLET PO PRN (00:33)
[2018-10-09] MEDS: ALBUTEROL/IPRATROPIUM 3 ML NEB RESP TX SCH ×2 (01:10→07:32)
[2018-10-09] MEDS: ACETAMINOPHEN 325 MG TABLET PO PRN (05:34)
[2018-10-09 07:35] VITALS: BP 108/76
[2018-10-09] MEDS: INSULIN LISPRO 100 UNIT/ML SUBCUT SCH (08:48)
[2018-10-09] MEDS: DOCUSATE SODIUM 100 MG CAPSULE PO SCH (08:49)
[2018-10-09] MEDS: PANTOPRAZOLE 40 MG TABLET PO SCH (08:49)
[2018-10-09] MEDS: FERROUS SULFATE 325 MG TABLET PO SCH (08:49)
[2018-10-09] MEDS: METOPROLOL TARTRATE 25 MG TABLET PO SCH (08:49)
[2018-10-09] MEDS: ASPIRIN CHEW 81 MG TABLET PO SCH (08:50)
[2018-10-09] MEDS: CHLORHEXIDINE 0.12% ORAL RINSE 60 ML BOTTLE SWISH/SPIT SCH (08:52)
== END 2018-10-09 11:20 | disposition home or self-care (01) | DRG 235 ==
LOC: N.TELES 08:48 → N.CVR 10-02 08:47 → N.ICU 10-03 18:09 → N.TELES 10-05 15:52